=== PATIENT | male | born 1965 | race Caucasian/White ===

== ENCOUNTER 2016-11-10 18:52 | Emergency (ER) | payer OTHER ==
[~2016-11-10 18:52] MED LIST: ASPIR 8181 MG PO; ENTECAVIR1 MG PO; HABITROL 14 MG P1 EA TD; K-DUR TAB 10 M10 MEQ PO; LACTULOSE20 GM/30 M PO; LASIX20 MG PO; METOPROLOL TART50 MG PO; NEURONTIN 400400 MG PO; PROTONIX40 MG PO
[2016-11-10 23:23] LABS: HEMOGLOBIN 15.1 gm/dl (14.0-17.5); RED BLOOD COUNT 4.68 M/UL (4.20-5.50); WHITE BLOOD COUNT 6.6 K/UL (4.5-11.0)
[2016-11-10 23:44] LABS: BUN/CREATININE RATIO 20 (0-10)
[2017-03-21] MEDS ORDERED: ZANTAC 150 MG150 MG PO (23:37)
[2017-03-21] MEDS ORDERED: KLONOPIN TAB 00.5 MG PO (23:38)
[2017-03-22] MEDS ORDERED: LISINOPRIL20 MG PO (07:29)
[2017-03-22] MEDS ORDERED: PROTONIX40 MG PO (07:29)
[2017-03-22] MEDS ORDERED: KEPPRA250 MG PO (07:31)
[2017-03-22] MEDS ORDERED: OMEPRAZOLE20 MG OP (07:32)
[2017-03-22] MEDS ORDERED: RANITIDINE HCL300 MG PO (07:34)
[2017-03-22] MEDS ORDERED: HYDROXYZINE PAM25 MG PO (07:36)
== END 2016-11-11 04:50 | disposition home or self-care (01) ==
LOC: ER1 18:52
PROVIDERS: Emergency Medicine
DX: R07.9 Chest pain, unspecified (principal); I10 Essential (primary) hypertension; R06.02 Shortness of breath; R10.11 Right upper quadrant pain; E78.5 Hyperlipidemia, unspecified; F17.200 Nicotine dependence, unspecified, uncomplicated; Z88.2 Allergy status to sulfonamides; Z88.5 Allergy status to narcotic agent; Z88.8 Allergy status to other drugs, medicaments and biological substances; Z79.899 Other long term (current) drug therapy
CPT/HCPCS: 36415; 71010; 80053; 82550; 82553; 83690; 83874; 84484; 85025; 93005; 96365; 96375; 99285; J2550